=== PATIENT | female | born 1970 | race Caucasian/White ===

== ENCOUNTER → 2020-07-05 | Outpatient (CLI) | payer OTHER, MEDICAID ==
[~2020-07-05] MED LIST: ABILIFY15 MG; BUSPAR; CELEXA40 MG; CIPROFLOXACIN500 M3 OR; IBUPROFEN 800800 M1 PO; PROTONIX40 M2; PYRIDIUM200 MG PO; VISTARIL 25 MG25 M1; VYVANSE30 MG
== END ==
LOC: M.RAD 12:24
PROVIDERS: ATTEND Internal Medicine
DX: J41.0 Simple chronic bronchitis (principal); F17.200 Nicotine dependence, unspecified, uncomplicated

== ENCOUNTER → 2020-08-19 | Outpatient (CLI) | payer OTHER, MEDICAID ==
--- NOTE | 2020-08-19 16:33 | EXE ---
[place] [address] STRESS ECHOCARDIOGRAM Name: DELANO MCKEON Room: [facility]#: [id number] Admission: 08/19/20 Attend Phys: Marty Leigh MD Discharge: Date of : 74 Date of Service: 08/19/20 1633 Report #: [id number] THIS REPORT FOR: cc: Aaron Richard MD, Meng MD Holkins, John M. MD [facility] ~ APPROVED REPORT Study performed: 08/19/2020 15:09:58 Exam: Dobutamine Stress Echo Indication: Chest pain Patient Location: Out-Patient Stress Nurse: Sherri Sandy RN Supervising Physician: Anup Bucio MD Ht: 5 ft 5 in HR: 73 bpm BP: 105/78 mmHg Medical History Cardiac Risk Factors: Hyperlipidemia, HTN, Tobacco History (Current/Recent) Procedure The patient underwent a Pharmacological Stress Test using Dobutamine. Blood pressure, heart rate, and EKG were monitored. An Echocardiogram was performed by public health technician in four stages in quad fashion. At peak stress, four selected images were obtained and placed side by side with resting images for comparison. Stress Test Details Stress Test: Pharmacological Stress Test using Dobutamine. Reason for pharmacologic stress test: physical limitation. HR Resting HR: 73 bpm Max Heart Rate (APMHR): 172 bpm Max HR Achieved: 148 bpm Target HR (85% APMHR): 146 bpm % of APMHR: 86 Recovery HR: 85 bpm HR response to stress: Normal HR response to stress BP Resting BP: 105/78 mmHg Max BP: 167/[place] [address] STRESS ECHOCARDIOGRAM Name: DELANO MCKEON [place] Room: [facility]#: [id number] Admission: 08/19/20 Attend Phys: Marty Leigh MD Discharge: Date of : 74 Date of Service: 08/19/20 1633 Report #: [id number] Recovery BP: 127/77 mmHg BP response to stress: Normal blood pressure response to stress. ECG Resting ECG: Sinus rhythm normal EKG Stress ECG: No ischemic ST-T changes Arrhythmia: No arrhythmias noted Recovery ECG: No ischemic ST-T changes Recovery Arrhythmia: No arrhythmias noted Clinical Reason for Termination: Completed protocol Pre-Stress Echo The resting Echocardiogram showed normal left ventricular contractility with an estimated Ejection Fraction of about 55-60%. Normal wall motion in all segments on baseline images. Post-Stress Echo The stress Echocardiogram showed normal left ventricular contractility with an estimated Ejection Fraction of about >70%. Normal augmentation of wall motion in all segments on post stress images. Conclusion Clinical Response: Non-ischemic Stress ECG Response: Non-ischemic Stress Echo Images: Non-ischemic Other Information Study Quality: Good <ELECTRONICALLY SIGNED> By: Anup Bucio MD, [facility] 08/19/20 163 32 32 Anup Bucio MD, FAC /INF
== END ==
LOC: M.CRD 14:35
PROVIDERS: ATTEND Internal Medicine Cardiovascular Disease
DX: R07.1 Chest pain on breathing (principal)

== ENCOUNTER → 2020-11-05 | Outpatient (CLI) | payer OTHER, MEDICAID | LOC: M.RAD 13:24 | PROVIDERS: ATTEND Internal Medicine | DX: Z12.31 Encounter for screening mammogram for malignant neoplasm of breast (principal) ==

== ENCOUNTER → 2020-11-07 | Outpatient (CLI) | payer OTHER, MEDICAID | LOC: M.ULTRA 10:28 | PROVIDERS: ATTEND Internal Medicine | DX: N60.01 Solitary cyst of right breast (principal); R92.2 Inconclusive mammogram ==